=== PATIENT | male | born 1970 | race Caucasian/White ===

== ENCOUNTER 2020-08-21 11:17 | Emergency (ER) | payer OTHER ==
[~2020-08-21 11:17] MED LIST: ALDACTONE25 MG PO; LASIX40 MG PO; PROTONIX 40 MG40 M1 PO
[2020-08-21 11:54] LABS: HEMOGLOBIN 11.8 gm/dl (14.0-17.5); RED BLOOD COUNT 4.09 M/UL (4.20-5.50); WHITE BLOOD COUNT 4.6 K/UL (4.5-11.0)
[2020-08-21 12:15] LABS: BUN/CREATININE RATIO 12 (0-10)
[2020-08-21] MEDS ORDERED: LEVOFLOXACIN500 MG PO (15:46)
[2020-08-21] MEDS ORDERED: METRONIDAZOLE500 MG PO (15:46)
[2020-08-21] MEDS ORDERED: LACTULOSE20 GM/30 M PO (15:46)
[2020-08-21] MEDS ORDERED: FUROSEMIDE40 MG PO (15:46)
[2020-08-21] MEDS ORDERED: SPIRONOLACTONE100 MG PO (15:46)
== END 2020-08-21 16:25 | disposition home or self-care (01) ==
LOC: ER1 11:17
PROVIDERS: Family Medicine
DX: K74.60 Unspecified cirrhosis of liver (principal); K57.90 Diverticulosis of intestine, part unspecified, without perforation or abscess without bleeding; R18.8 Other ascites; K85.90 Acute pancreatitis without necrosis or infection, unspecified; E66.01 Morbid (severe) obesity due to excess calories; I10 Essential (primary) hypertension; F17.200 Nicotine dependence, unspecified, uncomplicated; Z90.89 Acquired absence of other organs; Z79.899 Other long term (current) drug therapy
CPT/HCPCS: 80053; 81001; 82140; 82150; 83605; 83690; 85025; 85610; 99284; Q9967

== ENCOUNTER 2020-08-25 16:26 | Emergency (ER) | payer OTHER ==
[~2020-08-25 16:26] MED LIST changes: +FUROSEMIDE40 MG PO; +LACTULOSE20 GM/30 M PO; +LEVOFLOXACIN500 MG PO; +METRONIDAZOLE500 MG PO; +SPIRONOLACTONE100 MG PO
[2020-08-25 21:11] LABS: HEMOGLOBIN 11.3 gm/dl (14.0-17.5); RED BLOOD COUNT 3.91 M/UL (4.20-5.50); WHITE BLOOD COUNT 5.3 K/UL (4.5-11.0)
[2020-08-25 21:22] LABS: BUN/CREATININE RATIO 10 (0-10)
[2020-08-25] MEDS ORDERED: KLOR-CON20 MEQ PO (23:42)
[2020-08-25] MEDS ORDERED: AMOX TR-K CLV1 EAC4 PO (23:42)
== END 2020-08-26 00:20 | disposition home or self-care (01) ==
LOC: ER1 16:26
PROVIDERS: Physician Assistant
DX: K61.0 Anal abscess (principal); E87.6 Hypokalemia; E66.9 Obesity, unspecified; F17.210 Nicotine dependence, cigarettes, uncomplicated
CPT/HCPCS: 80053; 81001; 83605; 85025; 87040; 96374; 96375; 99284; J1885; J2405; J3475; J7070; Q9967

== ENCOUNTER 2020-10-02 08:12 | Emergency (ER) | payer OTHER ==
[~2020-10-02] VITALS: Ht 180.3 cm; Wt 136.1 kg
[~2020-10-02 08:12] MED LIST changes: +AMOX TR-K CLV1 EAC4 PO; +KLOR-CON20 MEQ PO
[2020-10-02 08:52] LABS: HEMOGLOBIN 12.1 gm/dl (14.0-17.5); RED BLOOD COUNT 4.21 M/UL (4.20-5.50); WHITE BLOOD COUNT 3.3 K/UL (4.5-11.0)
[2020-10-02 09:15] LABS: BUN/CREATININE RATIO 11 (0-10)
[2020-10-02] MEDS ORDERED: SINEQUAN CAP 5050 MG PO (12:47)
[2020-10-02] MEDS ORDERED: K-DUR TAB 20 M20 MEQ PO (12:48)
[2020-10-02] MEDS ORDERED: VIIBRYD20 MG PO (12:49)
[2020-10-02] MEDS ORDERED: CARAFATE 1 GM TA1 GM PO (13:50)
== END 2020-10-02 14:00 | disposition left against medical advice (07) ==
LOC: ER1 08:12 → CDU 12:34
PROVIDERS: Emergency Medicine
DX: J20.9 Acute bronchitis, unspecified (principal); E87.6 Hypokalemia; F10.10 Alcohol abuse, uncomplicated; D61.818 Other pancytopenia; K74.60 Unspecified cirrhosis of liver; F17.210 Nicotine dependence, cigarettes, uncomplicated; Z20.822 Contact with and (suspected) exposure to COVID-19
CPT/HCPCS: 36600; 71045; 80053; 82550; 82553; 82803; 83874; 83880; 84484; 85025; 85379; 87040; 93005; 93970; 96374; 96375; 99284; G0480; J0696; J3411; J3475; J7030; Q9967; U0002